=== PATIENT | male | born 1990 | race Caucasian/White ===

== ENCOUNTER → 2018-01-08 | Outpatient (REF) | payer OTHER ==
[2018-01-08 19:11] LABS: BASO # 0.1 10^3/uL (0.0-0.2); BASO % 0.5 % (0.0-1.0); EOS # 0.2 10^3/uL (0.0-0.50); EOS % 1.9 % (0.0-3.0); HEMATOCRIT 46.6 % (42.0-52.0); HEMOGLOBIN 16.4 g/dl (13.5-17.5); IMMATURE GRANULOCYTE % 0.5 % (0-3.0); LYMPH # 3.2 10^3/uL (1.5-6.5); LYMPH % 29.3 % (24.0-44.0); MEAN CORPUSCULAR HEMOGLOBIN 29.5 pg (27.0-33.0); MEAN CORPUSCULAR HGB CONC 35.2 g/dl (32.0-36.5); MONO # 1.1 10^3/uL (0.0-0.8); NEUTROPHILS # 6.4 10^3/uL (1.8-7.7); NEUTROPHILS % 57.8 % (36.0-66.0); PLATELET COUNT, AUTOMATED 308 10^3/uL (150-450); RED BLOOD COUNT 5.55 10^6/uL (4.30-6.10); RED CELL DISTRIBUTION WIDTH 11.9 % (11.5-14.5); WHITE BLOOD COUNT 11.1 10^3/uL (4.0-10.0)
[2018-01-08 19:27] LABS: THYROID STIMULATING HORMONE 0.306 uIU/ML (0.358-3.740)
[2018-01-08 19:27] LABS: ESTIMATED AVERAGE GLUCOSE 97 MG/DL (60-110)
[2018-01-08 19:28] LABS: TOTAL 25(OH) VITAMIN D 20.7 NG/ML (30.0-100.0)
[2018-01-16 15:39] LABS: SUMMARY SEE SEPARATE REPORT
== END ==
LOC: M LAB REF 17:01
DX: F90.9 Attention-deficit hyperactivity disorder, unspecified type (principal)

== ENCOUNTER → 2018-04-26 | Outpatient (REF) | payer OTHER ==
[2018-04-26 19:03] LABS: FREE T4 0.84 NG/DL (0.76-1.46)
== END ==
LOC: M LAB REF 18:32
DX: E05.10 Thyrotoxicosis with toxic single thyroid nodule without thyrotoxic crisis or storm (principal)

== ENCOUNTER → 2020-04-21 | Outpatient (REF) | payer OTHER ==
[2020-04-21 12:06] LABS: HEMATOCRIT 44.2 % (42.0-52.0); HEMOGLOBIN 14.7 g/dl (13.5-17.5); MEAN CORPUSCULAR HEMOGLOBIN 29.5 pg (27.0-33.0); MEAN CORPUSCULAR HGB CONC 33.3 g/dl (32.0-36.5); MEAN CORPUSCULAR VOLUME 88.8 fl (80.0-96.0); PLATELET COUNT, AUTOMATED 280 10^3/uL (150-450); RED BLOOD COUNT 4.98 10^6/uL (4.30-6.10); WHITE BLOOD COUNT 13.9 10^3/uL (4.0-10.0)
[2020-04-21 12:46] LABS: ALBUMIN 3.8 GM/DL (3.2-5.2); ALT/SGPT 45 U/L (12-78); BILIRUBIN,TOTAL 0.2 MG/DL (0.2-1.0); BLOOD UREA NITROGEN 14 MG/DL (7-18); CALCIUM LEVEL 9.4 MG/DL (8.5-10.1); CARBON DIOXIDE LEVEL 27 MEQ/L (21-32); CHLORIDE LEVEL 106 MEQ/L (98-107); CHOLESTEROL LEVEL 170 MG/DL (<200); CHOLESTEROL RISK RATIO 4.594 (<5); CREATININE FOR GFR 0.86 MG/DL (0.70-1.30); FREE T4 0.98 NG/DL (0.76-1.46); GLOMERULAR FILTRATION RATE > 60.0 (>60); GLUCOSE, FASTING 95 MG/DL (70-100); HDL CHOLESTEROL 37 MG/DL (>40); LDL CHOLESTEROL 102 MG/DL (<100); NON-HDL-C 133 MG/DL; POTASSIUM SERUM 4.3 MEQ/L (3.5-5.1); SODIUM LEVEL 139 MEQ/L (136-145); TRIGLYCERIDES LEVEL 155 MG/DL (<150)
[2020-04-21 14:02] LABS: HEMOGLOBIN A1c 5.1 %
== END ==
LOC: M LAB REF 11:26
PROVIDERS: ATTEND Physician Assistant
DX: R94.6 Abnormal results of thyroid function studies (principal); R03.0 Elevated blood-pressure reading, without diagnosis of hypertension; E11.69 Type 2 diabetes mellitus with other specified complication

== ENCOUNTER → 2020-06-21 | Outpatient (CLI) | payer OTHER ==
[2020-06-21 13:33] LABS: FREE T4 0.89 NG/DL (0.76-1.46)
[2020-06-21 13:34] LABS: THYROGLOBULIN ANTIBODY < 15.0 U/ML (<60.0)
== END ==
LOC: M PLALAB 10:27
PROVIDERS: ATTEND Nurse Practitioner Family
DX: E03.9 Hypothyroidism, unspecified (principal)

== ENCOUNTER → 2020-07-14 | Outpatient (REF) | payer OTHER ==
[2020-07-14 18:13] LABS: THYROID STIMULATING HORMONE 3.48 uIU/ML (0.358-3.740)
== END ==
LOC: M LAB REF 16:16
PROVIDERS: ATTEND Physician Assistant
DX: E03.9 Hypothyroidism, unspecified (principal)

== ENCOUNTER → 2020-08-23 | Outpatient (REF) | payer OTHER ==
[2020-08-23 13:35] LABS: FREE T4 1.18 NG/DL (0.76-1.46); THYROID STIMULATING HORMONE 1.57 uIU/ML (0.358-3.740)
== END ==
LOC: M LAB REF 12:22
PROVIDERS: ATTEND Physician Assistant
DX: E06.3 Autoimmune thyroiditis (principal)

== ENCOUNTER → 2020-09-07 | Outpatient (CLI) | payer OTHER ==
[~2020-09-07] MED LIST: LIDOCAINE 2% 100MG/5ML SDV (FOR ANES.) As Ordered ONE; MIDAZOLAM INJ 2MG/2ML VIAL (J2250 PER 1MG) As Ordered ONE; ROCURONIUM BROMIDE 50 MG/5 ML VIAL As Ordered ONE; fentaNYL 250 MCG/5 ML INJECTION (J3010) As Ordered ONE; propofoL 200 MG/20 ML VIAL As Ordered ONE
--- NOTE | 2020-09-07 19:04 | REP ---
INDICATION: GOITER. Nontoxic goiter. COMPARISON: Comparison sonography 03 June 2020.. TECHNIQUE: High-resolution bilateral thyroid sonography. FINDINGS: Thyroid isthmus is 0.5 cm in thickness. Right lobe dimensions today by ultrasound of 4.6 x 1.7 x 2.2 cm. Left lobe measures 4.9 x 2.1 x 1.6 cm. These measurements are essentially stable. The thyroid gland parenchyma remains very heterogeneous consistent with thyroiditis. Multinodular appearance is seen. There are 2 measurable nodules is felt to be present in the right lower pole. These measure 0.9 x 0.7 x 0.5 and 1.1 x 1.0 x 0.9 cm respectively today. There is centrally unchanged. IMPRESSION: Findings consistent with multinodular thyroid. Question thyroiditis. There are 2 measurable hypoechoic nodules in the lower pole.. <Electronically signed by Rayshawn Jhaveri > 09/07/201900
== END ==
LOC: M RAD 13:17
PROVIDERS: ATTEND Physician Assistant
DX: E04.9 Nontoxic goiter, unspecified (principal)
CPT/HCPCS: 76536; J2250

== ENCOUNTER → 2020-11-24 | Outpatient (REF) | payer OTHER ==
[2020-11-24 17:32] LABS: ALBUMIN 3.7 GM/DL (3.2-5.2); ALT/SGPT 44 U/L (12-78); BILIRUBIN,TOTAL 0.3 MG/DL (0.2-1.0); BLOOD UREA NITROGEN 14 MG/DL (7-18); CALCIUM LEVEL 9.2 MG/DL (8.5-10.1); CARBON DIOXIDE LEVEL 30 MEQ/L (21-32); CHLORIDE LEVEL 103 MEQ/L (98-107); CHOLESTEROL LEVEL 155 MG/DL (<200); CHOLESTEROL RISK RATIO 4.078 (<5); CREATININE FOR GFR 0.85 MG/DL (0.70-1.30); GLOMERULAR FILTRATION RATE > 60.0 (>60); GLUCOSE, FASTING 91 MG/DL (70-100); HDL CHOLESTEROL 38 MG/DL (>40); LDL CHOLESTEROL 92 MG/DL (<100); NON-HDL-C 117 MG/DL; POTASSIUM SERUM 4.5 MEQ/L (3.5-5.1); SODIUM LEVEL 138 MEQ/L (136-145); TOTAL PROTEIN 7.9 GM/DL (6.4-8.2); TRIGLYCERIDES LEVEL 123 MG/DL (<150)
== END ==
LOC: M LAB REF 16:08
PROVIDERS: ATTEND Physician Assistant
DX: E78.5 Hyperlipidemia, unspecified (principal)

== ENCOUNTER → 2020-12-24 | Outpatient (CLI) | payer OTHER ==
[2020-12-24 13:54] LABS: FREE T4 0.97 NG/DL (0.76-1.46); THYROID STIMULATING HORMONE 2.11 uIU/ML (0.358-3.740)
== END ==
LOC: M LAB 13:01
PROVIDERS: ATTEND Nurse Practitioner Family
DX: E06.3 Autoimmune thyroiditis (principal)

== ENCOUNTER → 2021-03-07 | Outpatient (CLI) | payer OTHER ==
[2021-03-07 17:05] LABS: FREE T4 0.99 NG/DL (0.76-1.46); THYROID STIMULATING HORMONE 1.16 uIU/ML (0.358-3.740)
== END ==
LOC: M PLALAB 12:45
PROVIDERS: ATTEND Nurse Practitioner Family
DX: E06.3 Autoimmune thyroiditis (principal)

== ENCOUNTER → 2021-05-31 | Outpatient (CLI) | payer OTHER ==
[2021-05-31 18:01] LABS: FREE T4 1.09 NG/DL (0.76-1.46); THYROID STIMULATING HORMONE 0.872 uIU/ML (0.358-3.740)
== END ==
LOC: M PLALAB 13:36
PROVIDERS: ATTEND Nurse Practitioner Family
DX: E06.3 Autoimmune thyroiditis (principal)

== ENCOUNTER → 2021-10-05 | Outpatient (CLI) | payer OTHER ==
[2021-10-05 17:23] LABS: FREE T4 1.06 NG/DL (0.76-1.46); THYROID STIMULATING HORMONE 0.778 uIU/ML (0.358-3.740)
== END ==
LOC: M PLALAB 15:11
PROVIDERS: ATTEND Nurse Practitioner Family
DX: E06.3 Autoimmune thyroiditis (principal)

== ENCOUNTER → 2022-04-05 | Outpatient (REF) | payer OTHER, MEDICAID ==
[2022-04-05 17:29] LABS: BASO # 0.1 10^3/uL (0.0-0.2); BASO % 0.6 % (0.0-1.0); EOS # 0.2 10^3/uL (0.0-0.5); EOS % 2.1 % (0.0-3.0); HEMATOCRIT 45.9 % (42.0-52.0); HEMOGLOBIN 15.1 g/dl (13.5-17.5); LYMPH # 3.4 10^3/uL (1.5-5.0); MEAN CORPUSCULAR HEMOGLOBIN 29.2 pg (27.0-33.0); MEAN CORPUSCULAR HGB CONC 32.9 g/dl (32.0-36.5); MEAN CORPUSCULAR VOLUME 88.8 fl (80.0-96.0); MONO # 0.7 10^3/uL (0.0-0.8); MONO % 6.9 % (2.0-8.0); NEUTROPHILS # 5.4 10^3/uL (1.5-8.5); PLATELET COUNT, AUTOMATED 284 10^3/uL (150-450); RED BLOOD COUNT 5.17 10^6/uL (4.30-6.10); WHITE BLOOD COUNT 9.8 10^3/uL (4.0-10.0)
[2022-04-05 17:43] LABS: ALT/SGPT 29 U/L (12-78); BILIRUBIN,TOTAL 0.6 MG/DL (0.2-1.0); BLOOD UREA NITROGEN 9 MG/DL (7-18); CALCIUM LEVEL 9.5 MG/DL (8.5-10.1); CARBON DIOXIDE LEVEL 28 MEQ/L (21-32); CHLORIDE LEVEL 104 MEQ/L (98-107); GLOMERULAR FILTRATION RATE > 60.0 (>60); GLUCOSE, FASTING 95 MG/DL (70-100); SODIUM LEVEL 138 MEQ/L (136-145); TOTAL PROTEIN 7.9 GM/DL (6.4-8.2)
[2022-04-05 18:54] LABS: HEPATITIS C VIRUS ABY INDEX < 0.0 INDEX (<0.8); HIV 1&2 SCREEN CENTAUR NEGATIVE (NEGATIVE)
== END ==
LOC: M LAB REF 16:21
PROVIDERS: ATTEND Pediatrics
DX: K21.9 Gastro-esophageal reflux disease without esophagitis (principal); E06.3 Autoimmune thyroiditis; E55.9 Vitamin D deficiency, unspecified; Z11.4 Encounter for screening for human immunodeficiency virus [HIV]; Z11.59 Encounter for screening for other viral diseases

== ENCOUNTER → 2022-08-04 | Outpatient (REF) | payer OTHER, MEDICAID ==
[2022-08-04 16:54] LABS: ALBUMIN 4.1 G/DL (3.2-5.2); ALKALINE PHOSPHATASE 124 U/L (46-116); ALT/SGPT 35 U/L (7.0-40); AST/SGOT 30 U/L (<34); BILIRUBIN,TOTAL 0.4 MG/DL (0.3-1.2); BLOOD UREA NITROGEN 17 MG/DL (9-23); CALCIUM LEVEL 9.5 MG/DL (8.5-10.1); CARBON DIOXIDE LEVEL 28 MMOL/L (20-31); CHLORIDE LEVEL 99 MMOL/L (98-107); CHOLESTEROL LEVEL 144 MG/DL (<200); CHOLESTEROL RISK RATIO 3.11 (<5); CREATININE FOR GFR 0.97 MG/DL (0.70-1.30); GLOMERULAR FILTRATION RATE > 60.0 (>60); GLUCOSE, FASTING 77 MG/DL (60-100); HDL CHOLESTEROL 46.3 MG/DL (>40); LDL CHOLESTEROL 84.1 MG/DL (<100); NON-HDL-C 98 MG/DL; POTASSIUM SERUM 4.2 MMOL/L (3.5-5.1); SODIUM LEVEL 137 MMOL/L (136-145); TOTAL PROTEIN 7.6 G/DL (5.7-8.2); TRIGLYCERIDES LEVEL 68 MG/DL (<150)
== END ==
LOC: M LAB REF 16:26
PROVIDERS: ATTEND Pediatrics
DX: E06.3 Autoimmune thyroiditis (principal); E66.01 Morbid (severe) obesity due to excess calories

== ENCOUNTER → 2022-10-16 | Outpatient (CLI) | payer OTHER | LOC: M WHC 06:58 | PROVIDERS: ATTEND Pediatrics | DX: R74.8 Abnormal levels of other serum enzymes (principal); E04.2 Nontoxic multinodular goiter ==

== ENCOUNTER → 2022-11-21 | Outpatient (REF) | payer OTHER, MEDICAID ==
[2022-11-21 14:56] LABS: THYROID STIMULATING HORMONE 2.896 uIU/ML (0.55-4.78)
== END ==
LOC: M LAB REF 12:52
PROVIDERS: ATTEND Pediatrics
DX: R74.8 Abnormal levels of other serum enzymes (principal); E06.3 Autoimmune thyroiditis

== ENCOUNTER → 2023-02-02 | Outpatient (REF) | payer OTHER, MEDICAID ==
[2023-02-02 12:56] LABS: ALBUMIN 3.7 G/DL (3.2-5.2); ALKALINE PHOSPHATASE 127 U/L (46-116); ALT/SGPT 23 U/L (7.0-40); AST/SGOT 10 U/L (<34); BILIRUBIN,TOTAL 0.2 MG/DL (0.3-1.2); BLOOD UREA NITROGEN 13 MG/DL (9-23); CALCIUM LEVEL 9.1 MG/DL (8.5-10.1); CARBON DIOXIDE LEVEL 28 MMOL/L (20-31); CHLORIDE LEVEL 103 MMOL/L (98-107); CREATININE FOR GFR 0.75 MG/DL (0.70-1.30); GLOMERULAR FILTRATION RATE > 60.0 (>60); GLUCOSE, FASTING 92 MG/DL (60-100); MAGNESIUM LEVEL 1.9 MG/DL (1.8-2.4); POTASSIUM SERUM 4.2 MMOL/L (3.5-5.1); SODIUM LEVEL 138 MMOL/L (136-145); TOTAL PROTEIN 7.4 G/DL (5.7-8.2)
[2023-02-02 12:59] LABS: THYROID STIMULATING HORMONE 0.947 uIU/ML (0.55-4.78)
== END ==
LOC: M LAB REF 11:32
PROVIDERS: ATTEND Pediatrics
DX: I10 Essential (primary) hypertension (principal); E06.3 Autoimmune thyroiditis

== ENCOUNTER → 2023-12-13 | Outpatient (REF) | payer OTHER, MEDICAID ==
[2023-12-13 17:33] LABS: BLOOD UREA NITROGEN 13 MG/DL (9-23); CARBON DIOXIDE LEVEL 28 MMOL/L (20-31); CHLORIDE LEVEL 104 MMOL/L (98-107); CREATININE FOR GFR 0.88 MG/DL (0.70-1.30); GLOMERULAR FILTRATION RATE > 60.0 (>60); GLUCOSE, FASTING 100 MG/DL (60-100); POTASSIUM SERUM 4.3 MMOL/L (3.5-5.1); SODIUM LEVEL 138 MMOL/L (136-145)
[2023-12-13 17:35] LABS: THYROID STIMULATING HORMONE 1.249 uIU/ML (0.55-4.78)
== END ==
LOC: M LAB REF 16:32
PROVIDERS: ATTEND Pediatrics
DX: I10 Essential (primary) hypertension (principal); E06.3 Autoimmune thyroiditis

== ENCOUNTER → 2024-09-05 | Outpatient (CLI) | payer OTHER | LOC: M RAD 15:29 | PROVIDERS: ATTEND Pediatrics | DX: E04.2 Nontoxic multinodular goiter (principal) ==

== ENCOUNTER → 2025-03-23 | Outpatient (REF) | payer OTHER ==
[2025-03-23 17:24] LABS: OSMOLALITY SERUM 293 MOSM/KG (275-295)
[2025-03-23 17:31] LABS: CALCIUM LEVEL 9.1 MG/DL (8.5-10.1); CARBON DIOXIDE LEVEL 28 MMOL/L (20-31); CHLORIDE LEVEL 102 MMOL/L (98-107); CREATININE FOR GFR 0.89 MG/DL (0.70-1.30); GLOMERULAR FILTRATION RATE > 90.0 (>60); POTASSIUM SERUM 4.1 MMOL/L (3.5-5.1); SODIUM LEVEL 140 MMOL/L (136-145)
[2025-03-23 17:42] LABS: SODIUM,RANDOM URINE 254 MMOL/L
== END ==
LOC: M LAB REF 16:20
PROVIDERS: ATTEND Pediatrics
DX: E06.3 Autoimmune thyroiditis (principal); E87.1 Hypo-osmolality and hyponatremia